=== PATIENT | male | born 1990 | race Caucasian/White ===

== ENCOUNTER 2016-03-20 09:01 | Emergency (ER) | payer OTHER ==
[2016-03-20] MEDS ORDERED: Ketorolac Tromethamine 60 MG/2 ML VIAL ONE (09:17)
--- NOTE | 2016-03-20 09:40 | ERRECORD ---
[facility] EMERGENCY RECORD HPI ANKLE (: [facility]) CHIEF COMPLAINT: Patient presents for evaluation of injury, Patient presents for evaluation of pain, Patient presents for evaluation of swelling. HISTORIAN: History provided by patient, 25M presents to the ED with complaints of right ankle pain. states that last night around 9pm he stepped in a hole and rolled his ankle, describing inversion. Reports pain over lateral and medial malleoli. Denies other injury. MECHANISM OF INJURY: Mechanism of injury fall. LOCATION: Symptoms are localized, most severe to the lateral malleolus. QUALITY: Pain is dull in nature, described as aching. TIME COURSE: Sudden onset of symptoms, There has been no change in the patient's symptoms over time. ASSOCIATED WITH: No signs of compartment syndrome, No associated distal injury, No associated distal neuro complaint, Associated with pain with ambulation. EXACERBATED BY: Patient's condition exacerbated by inversion, Patient's condition exacerbated by bearing weight. RELIEVED BY: Patient's condition relieved by prescription medications, lortab. ROS (: [facility]) CONSTITUTIONAL: Negative constitutional review of systems, Historian denies chills, denies fever. ENT: Negative ears, nose, throat review of systems, Historian denies rhinorrhea, denies sore throat. CARDIOVASCULAR: Negative cardiovascular review of systems, Historian denies chest pain, denies palpitations. RESPIRATORY: Negative respiratory review of systems, Historian denies cough, denies shortness of breath. GI: Negative gastrointestinal review of systems, Historian denies abdominal pain, denies constipation, denies diarrhea, denies nausea, denies vomiting. MUSCULOSKELETAL: right ankle pain and swelling. SKIN: Negative skin review of systems, Historian denies rash, denies skin changes. NEUROLOGIC: Negative neurologic review of systems, Historian denies headache. PAST MEDICAL HISTORY (09:11 [facility]) MEDICAL HISTORY: No past medical history. MALE SURGICAL HISTORY: Patient has no surgical history. PSYCHIATRIC HISTORY: No previous psychiatric history. SOCIAL HISTORY: Patient drinks socially, once a month, Patient denies drug use, Patient has no smoking history. KNOWN ALLERGIES No Known Drug Allergies &a-1R&a+25V*p+0X*[id number]*c202B*c15G*c2P*p-0X&a-25V&a+1R Name: Ramesh Hopkins : 1990 M25 MedRec: [id number] AcctNum: [id number] Prepared: Roxanne Mar 20, 2016 09:44 by Interface Page 1 of 3 pMD [facility] EMERGENCY RECORD CURRENT MEDICATIONS (: [facility]) None VITAL SIGNS (:08 [facility]) VITAL SIGNS: BP: 108/56, Pulse: 94, Resp: 16, Temp: 98.1 (Oral), Pain: 2, O2 sat: 96 on Room Air, Time: 03/20/2016 09:08. PHYSICAL EXAM (09:27 [facility]) CONSTITUTIONAL: Vital signs reviewed, Patient afebrile, Pulse normal, Blood pressure normal, Respiratory rate normal, Patient appears non toxic, Patient appears pain free, Patient alert and oriented to person, place and time. NECK: Neck exam normal, Neck exam included findings of normal range of motion, Trachea midline, no meningeal signs, no cervical adenopathy, no tenderness. RESPIRATORY CHEST: Respiratory and chest exam normal, Respiratory exam included findings of no respiratory distress, Breath sounds clear. CARDIOVASCULAR: Cardiovascular assessment normal, Cardiovascular exam included findings of heart rate regular rate and rhythm, Heart sounds normal. ABDOMEN MALE: Abdominal exam included findings of abdomen nontender, Bowel sounds normal, no distension, no mass, no pulsatile masses, no peritoneal signs, no rigidity, no guarding, no rebound, Rovsing's sign absent. BACK: Back exam normal, Back exam included findings of normal inspection, range of motion normal, no tenderness. LOWER EXTREMITY: Right ankle:, Ankle swelling, no ankle warmth, Ankle tenderness, Posterior edge of the lateral malleolus, Achilles tendon intact, Ankle active range of motion limited, decreased secondary to pain, Ankle passive range of motion normal, Ankle tendon function normal, distal pulses intact, capillary refill less than 2 seconds, distal motor intact, distal sensory intact, Ankle stable. NEURO: Neuro exam normal, Neuro exam findings include patient oriented to person, place and time, Speech normal, Gait normal. SKIN: Skin exam normal, Skin exam included findings of skin warm, dry, and normal in color, no rash. RADIOLOGYINTERPRETATION (09:29 [facility]) LOWER EXTREMITIES: Ankle films negative, on the right, no fracture, no dislocation, no bony lesion, no degenerative joint disease, Mortise normal. MEDICATION ADMINISTRATION SUMMARY Drug Name: Toradol intramuscular, Dose Ordered: 60 mg, Route: Intramuscular, Status: Given, Time: 09:23 03/20/2016, Detailed record available in Medication Service section. &a-1R&a+25V*p+0X*[id number]*c202B*c15G*c2P*p-0X&a-25V&a+1R Name: Ramesh Hopkins : 1990 5 MedRec: [id number] AcctNum: [id number] Prepared: Roxanne Mar 20, 2016 09:44 by Interface Page 2 of 3 pMD [facility] EMERGENCY RECORD DOCTOR NOTES (09:31 [facility]) TEXT: Patient presented with complaints concerning for ankle fracture. Based on physical exam findings, radiology studies were obtained, which demonstrated no signs of fracture. The patient is neurovascularly intact distally. Symptoms have improved following analgesic medications. The patient has been placed in a splint, and can follow up with their primary care provider in one week, and can be sent to see Orthopedic surgery depending on follow up exam with primary care provider. Advised weightbearing as tolerated. PATIENT STATUS: Patient has improved since arrival to emergency department. PATIENT PLAN: The patient will be discharged, The patient will follow up with primary care physician. DATA REVIEWED: Xray data reviewed. PROBLEM LIST No recorded problems DIAGNOSIS (09:30 [facility]) FINAL: PRIMARY: RIGHT ankle sprain (unspecified). PRESCRIPTION No recorded prescriptions DISPOSITION PATIENT: Disposition Type: Discharge, Disposition: *Discharge Home. (09:30 [facility]) Patient left the department. (09:40 [facility]) South: ARIADNA=MILY Cabral, Anselmo [facility]=MD Gregoria, John &a-1R&a+25V*p+0X*[id number]*c202B*c15G*c2P*p-0X&a-25V&a+1R Name: Ramesh Hopkins : 1990 5 MedRec: [id number] AcctNum: [id number] Prepared: Roxanne Mar 20, 2016 09:44 by Interface Page 3 of 3 pMD MTDD
--- NOTE | 2016-03-20 09:45 | PICIS ---
[facility] EMERGENCY RECORD TRIAGE (09:08 [facility]) TRIAGE NOTES: [id number] RT ANKLE IN A HOLE AT 9PM 03/19/16. (09:08 [facility]) PATIENT: NAME: Ramesh Hopkins, AGE: 25, GENDER: male, : Mon 1990, TIME OF GREET: Sun Mar 20, 2016 09:02, PREFERRED LANGUAGE: Upper Sorbian, ETHNICITY: Not or , ECODE BILLING MAP: [facility], SSN: [id number], Zip Code: [address], KG WEIGHT: 136.08, , , PERSON ID: [id number], PCP: NONE. (09:08 [facility]) PHONE: . (09:16) COMPLAINT: RT ANKLE INJURY. (09:08 [facility]) ADMISSION: URGENCY: 4 Non Urgent, ADMISSION SOURCE: Home, TRANSPORT: Walk-in, BED: ER -03. (09:08 [facility]) ASSESSMENT: Assessment: STEPPED IN A HOLE AND TWISTED ANKLE. STATES HE CAN PUT WEIGHT ON IT FOR SHORT PERIODS OF TIME. (09:11 [facility]) IMMUNIZATIONS: Flu vaccine up to date, Tetanus immunization up to date, Pneumococcal vaccine not up to date. (09:11 [facility]) SIRS SCORING: Heart Rate 55-109 (0), Temp range 96.8-101.1 (0), respiratory rate 12-24 (0). (09:11 [facility]) TRIAGE SCREENING: Patient denies suicidal ideation, Patient denies presence of domestic violence. (09:11 [facility]) TREATMENTS IN PROGRESS: Treatments given Prehospital: IIBUPROFEN AND HYDROCODONE @ 2130 03/19/16. (09:11 [facility]) PROVIDERS: TRIAGE NURSE: Anselmo Cabral RN. (09:08 [facility]) PREVIOUS VISIT ALLERGIES: No Known Drug Allergies. (09:08 [facility]) No Known Drug Allergies. (09:11 [facility]) KNOWN ALLERGIES No Known Drug Allergies CURRENT MEDICATIONS (09:13 [facility]) None VITAL SIGNS (09:08 [facility]) VITAL SIGNS: BP: 108/56, Pulse: 94, Resp: 16, Temp: 98.1 (Oral), Pain: 2, O2 sat: 96 on Room Air, Time: 03/20/2016 09:08. NURSING ASSESSMENT: EXTREMITY LOWER (09:14 [facility]) CONSTITUTIONAL: Complex assessment performed, Patient arrives, via hospital wheelchair, Gait steady, History obtained from patient, Patient appears comfortable, Patient cooperative, Patient alert, Oriented to person, place and time, Skin warm, Skin dry, Skin normal in color, Mucous membranes pink, Mucous membranes moist, Patient is well-groomed, Patient complains of RT ANKLE INJURY, STEPPED IN A HOLE AND TWISTED ANKLE. STATES HE CAN PUT WEIGHT ON IT FOR SHORT PERIODS OF TIME. PAIN: to the right ankle, on a scale 0-10 patient rates pain as 2. LEFT LOWER EXTREMITY: Left lower extremity assessment findings &a-1R&a+25V*p+0X*v8153B*c202B*c15G*c2P*p-0X&a-25V&a+1R Name: Ramesh Hopkins : 1990 M25 MedRec: [id number] AcctNum: [id number] Prepared: Roxanne Mar 20, 2016 09:50 by Interface Page 1 of 5 pMD [facility] EMERGENCY RECORD include capillary refill less than 2 seconds, Skin color normal, Skin temperature warm, Distal sensation intact, Muscle tone normal. RIGHT LOWER EXTREMITY: Right lower extremity assessment findings include capillary refill less than 2 seconds, Skin color normal, Skin temperature warm, Distal sensation intact, Muscle tone normal, Inspection findings include swelling, to LATERAL ANKLE. SAFETY: Side rails up, Cart/Stretcher in lowest position, Family at bedside, Call light within reach, Hospital ID band on. NURSING PROCEDURE: BEDSIDE RADIOLOGY (09:18 [facility]) PATIENT IDENTIFIER: Patient actively involved in identification process, Patient's identity verified by patient stating name, Patient's identity verified by patient stating date. BEDSIDE RADIOLOGY: Portable x-ray performed, of the right ankle. SAFETY: Side rails up, Cart/Stretcher in lowest position, Family at bedside, Call light within reach, Hospital ID band on. NURSING PROCEDURE: DISCHARGE NOTE (09:37 [facility]) DISCHARGE: Patient discharged to home, ambulating with assistance, family driving, accompanied by other family member, Summary of Care printed/ provided, Transition record given to patient, Discharge instructions given to patient, Simple or moderate discharge teaching performed, by MILY Briones, Patient treated and evaluated by physician, Notes: Pt instructed to follow up with a PCP as needed. Opportunity for questions given. BELONGINGS: Belongings and valuables with patient at time of discharge include:, Belongings remain with patient, Valuables remain with patient. SAFETY: Side rails up, Cart/Stretcher in lowest position, Family at bedside, Call light within reach, Hospital ID band on. ORDER DETAILS Order Name: XR Ankle Rt 3 View STANDARD, Status: Active, Time: 09:13 03/20/2016, [email or web address], - Ordered for: MD Kinney Jason, - Entered by: MD Kinney Jason - Roxanne Mar 20, 2016 09:13, - Quantity: 1. MEDICATION ADMINISTRATION SUMMARY Drug Name: Toradol intramuscular, Dose Ordered: 60 mg, Route: Intramuscular, Status: Given, Time: 09:23 03/20/2016, Detailed record available in Medication Service section. MEDICATION SERVICE (09:23 [facility]) Toradol intramuscular: Order: Toradol intramuscular (ketorolac tromethamine) - Dose: 60 mg : Intramuscular Ordered by: John Kinney MD &a-1R&a+25V*p+0X*g8567C*c202B*c15G*c2P*p-0X&a-25V&a+1R Name: Ramesh Hopkins : 1990 M25 MedRec: [id number] AcctNum: [id number] Prepared: MonMar 20, 2016 09:50 by Interface Page 2 of 5 pMD [facility] EMERGENCY RECORD Entered by: MD Roxanne Smith Mar 20, 2016 09:13 , Acknowledged by: MILY Thomas Mar 20, 2016 09:17 Documented as given by: MILY Thomas Mar 20, 2016 09:23 Patient, Medication, Dose, Route and Time verified prior to administration. Amount given: 60 MG, Medication administered to left buttock, Correct patient, time, route, dose and medication confirmed prior to administration, Patient advised of actions and side-effects prior to administration, Allergies confirmed and medications reviewed prior to administration, Patient in position of comfort, Side rails up, Cart in lowest position, Family at bedside, Call light in reach. HPI ANKLE (09:25 [facility]) CHIEF COMPLAINT: Patient presents for evaluation of injury, Patient presents for evaluation of pain, Patient presents for evaluation of swelling. HISTORIAN: History provided by patient, 25M presents to the ED with complaints of right ankle pain. states that last night around 9pm he stepped in a hole and rolled his ankle, describing inversion. Reports pain over lateral and medial malleoli. Denies other injury. MECHANISM OF INJURY: Mechanism of injury fall. LOCATION: Symptoms are localized, most severe to the lateral malleolus. QUALITY: Pain is dull in nature, described as aching. TIME COURSE: Sudden onset of symptoms, There has been no change in the patient's symptoms over time. ASSOCIATED WITH: No signs of compartment syndrome, No associated distal injury, No associated distal neuro complaint, Associated with pain with ambulation. EXACERBATED BY: Patient's condition exacerbated by inversion, Patient's condition exacerbated by bearing weight. RELIEVED BY: Patient's condition relieved by prescription medications, lortab. ROS (09:27 [facility]) CONSTITUTIONAL: Negative constitutional review of systems, Historian denies chills, denies fever. ENT: Negative ears, nose, throat review of systems, Historian denies rhinorrhea, denies sore throat. CARDIOVASCULAR: Negative cardiovascular review of systems, Historian denies chest pain, denies palpitations. RESPIRATORY: Negative respiratory review of systems, Historian denies cough, denies shortness of breath. GI: Negative gastrointestinal review of systems, Historian denies abdominal pain, denies constipation, denies diarrhea, denies nausea, denies vomiting. MUSCULOSKELETAL: right ankle pain and swelling. SKIN: Negative skin review of systems, Historian denies rash, denies skin changes. NEUROLOGIC: Negative neurologic review of systems, Historian &a-1R&a+25V*p+0X*a7224A*c202B*c15G*c2P*p-0X&a-25V&a+1R Name: Ramesh Hopkins : 1990 M25 MedRec: [id number] AcctNum: [id number] Prepared: Roxanne Mar 20, 2016 09:50 by Interface Page 3 of 5 pMD [facility] EMERGENCY RECORD denies headache. PAST MEDICAL HISTORY (09:11 [facility]) MEDICAL HISTORY: No past medical history. MALE SURGICAL HISTORY: Patient has no surgical history. PSYCHIATRIC HISTORY: No previous psychiatric history. SOCIAL HISTORY: Patient drinks socially, once a month, Patient denies drug use, Patient has no smoking history. PHYSICAL EXAM (09:27 [facility]) CONSTITUTIONAL: Vital signs reviewed, Patient afebrile, Pulse normal, Blood pressure normal, Respiratory rate normal, Patient appears non toxic, Patient appears pain free, Patient alert and oriented to person, place and time. NECK: Neck exam normal, Neck exam included findings of normal range of motion, Trachea midline, no meningeal signs, no cervical adenopathy, no tenderness. RESPIRATORY CHEST: Respiratory and chest exam normal, Respiratory exam included findings of no respiratory distress, Breath sounds clear. CARDIOVASCULAR: Cardiovascular assessment normal, Cardiovascular exam included findings of heart rate regular rate and rhythm, Heart sounds normal. ABDOMEN MALE: Abdominal exam included findings of abdomen nontender, Bowel sounds normal, no distension, no mass, no pulsatile masses, no peritoneal signs, no rigidity, no guarding, no rebound, Rovsing's sign absent. BACK: Back exam normal, Back exam included findings of normal inspection, range of motion normal, no tenderness. LOWER EXTREMITY: Right ankle:, Ankle swelling, no ankle warmth, Ankle tenderness, Posterior edge of the lateral malleolus, Achilles tendon intact, Ankle active range of motion limited, decreased secondary to pain, Ankle passive range of motion normal, Ankle tendon function normal, distal pulses intact, capillary refill less than 2 seconds, distal motor intact, distal sensory intact, Ankle stable. NEURO: Neuro exam normal, Neuro exam findings include patient oriented to person, place and time, Speech normal, Gait normal. SKIN: Skin exam normal, Skin exam included findings of skin warm, dry, and normal in color, no rash. EVENTS TRANSFER: Triage to Emergency Emergency Room -03. (Roxanne Mar 20, 2016 09:08 [facility]) Removed from Emergency Emergency Room -03. (09:40 [facility]) RADIOLOGYINTERPRETATION (09:29 [facility]) LOWER EXTREMITIES: Ankle films negative, on the right, no fracture, no dislocation, no bony lesion, no degenerative joint &a-1R&a+25V*p+0X*e8154L*c202B*c15G*c2P*p-0X&a-25V&a+1R Name: Ramesh Hopkins : 1990 M25 MedRec: [id number] AcctNum: [id number] Prepared: Roxanne Mar 20, 2016 09:50 by Interface Page 4 of 5 pMD [facility] EMERGENCY RECORD disease, Mortise normal. DOCTOR NOTES (: [facility]) TEXT: Patient presented with complaints concerning for ankle fracture. Based on physical exam findings, radiology studies were obtained, which demonstrated no signs of fracture. The patient is neurovascularly intact distally. Symptoms have improved following analgesic medications. The patient has been placed in a splint, and can follow up with their primary care provider in one week, and can be sent to see Orthopedic surgery depending on follow up exam with primary care provider. Advised weightbearing as tolerated. PATIENT STATUS: Patient has improved since arrival to emergency department. PATIENT PLAN: The patient will be discharged, The patient will follow up with primary care physician. DATA REVIEWED: Xray data reviewed. PROBLEM LIST No recorded problems DIAGNOSIS (: [facility]) FINAL: PRIMARY: RIGHT ankle sprain (unspecified). DISPOSITION PATIENT: Disposition Type: Discharge, Disposition: *Discharge Home. (: [facility]) Patient left the department. (09:40 [facility]) INSTRUCTION (: [facility]) DISCHARGE: ANKLE SPRAIN WITH XRAY. SPECIAL: Motrin/Ibuprofen for pain. Ice 15 minutes on, 15 minutes off. Rest. PRESCRIPTION No recorded prescriptions IMAGING (09:39 [facility]) *SUPPLY CHARGE SHEET: Image captured from scanner. *DISCHARGE INSTRUCTIONS RECEIPT: Image captured from scanner. ADMIN (: [facility]) DIGITAL SIGNATURE: MD Kinney Jason. South: [facility]=MIYL Cabral, Anselmo [facility]=MD Kinney Jason &a-1R&a+25V*p+0X*g2260J*c202B*c15G*c2P*p-0X&a-25V&a+1R Name: Ramesh Hopkins : 1990 M25 MedRec: [id number] AcctNum: [id number] Prepared: Roxanne Mar 20, 2016 09:50 by Interface Page 5 of 5 pMD MTDD
--- NOTE | 2016-03-20 13:47 | RAD ---
RIGHT ANKLE 3 VIEWS: DATE: 03/20/16. FINDINGS: Marked lateral swelling is present. No major fracture was detected. There is a small piece of bone at the tip of the medial malleolus along with a few tinier flecks of bone above it. These were not present on a 09/09/08 exam of the ankle; however, particularly the larger fragment has somewhat smoo th margins, so I am not convinced that it is acute. There may have been other ankle trauma occur be tween these 2 pictures. The articular surface appears normal. IMPRESSION: 1. Marked lateral swelling (not the first time the patient has had a sprain of this magnitude). 2. A few flecks of bone near the tip of the malleolus. Not present on the 2008 study but still leeanne ears a little more likely old than new. Followup as required. POS: HOME
== END 2016-03-20 09:37 | disposition home or self-care (01) ==
LOC: BURERS 09:01
DX: S93.401A Sprain of unspecified ligament of right ankle, initial encounter (principal); X58.XXXA Exposure to other specified factors, initial encounter
CPT/HCPCS: 96372; J1885

== ENCOUNTER 2020-09-01 09:17 | Emergency (ER) | payer BC, OTHER ==
[2020-09-01] MEDS ORDERED: Ondansetron PF 4 MG/2 ML Vial ONE (09:37)
[2020-09-01] MEDS ORDERED: Acetaminophen 500 MG TAB ONE (09:49)
[2020-09-01] MEDS ORDERED: Ketorolac Tromethamine 30 MG/ML VIAL ONE (09:49)
[2020-09-01 10:01] LABS: Hemoglobin 17.7 g/dL (14.0-18.0); Mean Corpuscular Hemoglobin 28.9 pg (27.0-31.0); Mean Corpuscular Volume 87.7 fL (78.0-98.0); Mean Platelet Volume 8.7 fL (7.4-10.4); Platelet Count 252 thou/uL (130-400); RBC Distribution Width 12.5 % (11.5-14.5); Red Blood Cell (RBC) Count 6.13 mill/uL (4.70-6.10); White Blood Cell (WBC) Count 7.4 thou/uL (4.8-10.8)
[2020-09-01 10:02] LABS: Band 4 % (5-11); Lymphocytes 22 % (21-51); MDiff Complete? YES; Monocytes 5 % (0-10); Neutrophil 69 % (42-75); Vacuoles SLIGHT
[2020-09-01 10:15] LABS: ALT (SGPT) 41 U/L (8-55); AST (SGOT) 30 U/L (5-34); Albumin 3.9 g/dL (3.5-5.0); Alkaline Phosphatase 75 U/L (40-110); Anion Gap 16 mmol/L (10-20); BUN (Urea Nitrogen) 10 mg/dL (8.9-20.6); Bilirubin, Total 0.4 mg/dL (0.2-1.2); Calc. Creatinine Clearance 0 mL/min (70-130); Calcium 8.8 mg/dL (7.8-10.44); Carbon Dioxide 24 mmol/L (22-29); Chloride 104 mmol/L (98-107); Globulin 3.5 g/dL (2.4-3.5); Glucose 105 mg/dL (70-105); Potassium 3.5 mmol/L (3.5-5.1); Protein, Total 7.4 g/dL (6.0-8.3); Sodium 140 mmol/L (136-145)
[2020-09-01] MEDS ORDERED: Metoclopramide HCl 10 MG/2 ML VIAL ONE (11:16)
[2020-09-01] MEDS ORDERED: diphenhydrAMINE 50 MG/ML VIAL ONE (12:37)
== END 2020-09-01 14:20 | disposition short-term general hospital (02) ==
LOC: BURERS 09:17
DX: U07.1 COVID-19 (principal); R51.9 Headache, unspecified
CPT/HCPCS: 36415; 70450; 71045; 80053; 85025; 85379; 96374; 96375; J1200; J1885; J2405; J2765